=== PATIENT | female | born 1935 | race Caucasian/White ===

== ENCOUNTER 2019-12-21 13:28 | Outpatient (CLI) | payer MEDICARE, OTHER, SELFPAY ==
--- NOTE | 2019-12-21 13:47 | XR_ITS ---
WS: [id number] CHEST 2 VIEWS HISTORY: COUGH COMPARISON: None available. Lungs: Clear with no abnormality. No pleural effusion or pneumothorax. Cardiac size: Normal. Mediastinum/Aorta: Mild atherosclerosis of aorta and ectasia. Bones: S-shaped thoracolumbar scoliosis. Diffuse osteopenia. XR/XR chest 2V* [id number] IMPRESSION: Atherosclerosis aorta. No acute cardiopulmonary disease. No pneumonia.
== END 2019-12-21 13:29 | disposition home or self-care (01) ==
PROVIDERS: Family Provider Physician Assistant Medical; PCP Internal Medicine; Visit Provider Nurse Practitioner Family
DX: R05 Cough (principal); I70.0 Atherosclerosis of aorta
CPT/HCPCS: 71046

== ENCOUNTER 2023-05-22 21:55 | Emergency (ER) | payer MEDICARE, OTHER, SELFPAY ==
[2023-05-22 21:57] VITALS: BP 198/89; PULSE 84; RESP 18; TEMP 36.6; O2SAT 97; BMI 25.7
[2023-05-22 22:14] VITALS: BP 198/89; PULSE 74; RESP 16; O2SAT 97
--- NOTE | 2023-05-22 22:21 | XRR_ITS ---
PROCEDURE INFORMATION: Exam: XR Chest Exam date and time: 05/22/2023 10:26 PM Age: 87 years old Clinical indication: Other: Weakness h/a TECHNIQUE: Imaging protocol: Radiologic exam of the chest. Views: 1 view. COMPARISON: CR XR chest 2V* [id number] 12/21/2019 1:53 PM FINDINGS: Lungs: Unremarkable. No consolidation. Pleural spaces: Unremarkable. No pleural effusion. No pneumothorax. Heart/Mediastinum: Unremarkable. No cardiomegaly. Bones/joints: Dextroscoliosis. XR/XR chest 1V portable [id number] IMPRESSION: No acute findings.
--- NOTE | 2023-05-22 22:21 | CTR_ITS ---
PROCEDURE INFORMATION: Exam: CT Head Without Contrast Exam date and time: 05/22/2023 11:00 PM Age: 87 years old Clinical indication: Pain; Headache not specified; Additional info: [place] TECHNIQUE: Imaging protocol: Computed tomography of the head without contrast. Radiation optimization: All CT scans at this facility use at least one of these dose optimization techniques: automated exposure control; mA and/or kV adjustment per patient size (includes targeted exams where dose is matched to clinical indication); or iterative reconstruction. REPORTING DATA: Count of CT and Cardiac NM exams in prior 12 months: This patient has received 0 known CTs and 0 known cardiac nuclear medicine studies in the 12 months prior to the current study. COMPARISON: No relevant prior studies available. RADIATION DOSE METRICS: Total DLP (mGy-cm): 1204.95 FINDINGS: Brain: Severe calcified intracranial atherosclerotic vessel disease. Ludin cisterna magna which is a normal variant. Mild to moderate cerebral atrophy and ischemic leukoencephalopathy. Cerebral ventricles: No ventriculomegaly. Paranasal sinuses: Visualized sinuses are unremarkable. No fluid levels. Mastoid air cells: Visualized mastoid air cells are well aerated. Bones/joints: Unremarkable. No acute fracture. Soft tissues: Unremarkable. CT/CT head wo con* [id number] IMPRESSION: No acute intracranial findings.
[2023-05-22 22:27] LABS: Basophils % 0.3 %; Eosinophils % 0.1 %; Hematocrit 43.1 % (37.0-47.0); Hemoglobin 15.8 g/dL (11.5-15.3); Lymphocytes # 0.7 10^3/uL (0.8-4.8); Lymphocytes % 6.3 %; Mean Corpuscular HGB Conc 36.7 g/dL (30.0-36.0); Mean Corpuscular Hemoglobin 30.8 pg (28.0-34.0); Mean Platelet Volume 10.5 fL (7.4-10.4); Monocytes # 0.3 10^3/uL (0.2-0.9); Monocytes % 2.9 %; Neutrophils % 89.5 %; Nucleated Red Blood Cells % 0 %; Platelet Count 293 10^3/cmm (130-400); Red Blood Count 5.13 10^6/uL (4.1-5.3); Red Cell Distribution Width 13.2 % (12.1-15.1); White Blood Count 11.7 10^3/uL (4.0-10.0)
[2023-05-22] MEDS: acetaminophen 325 mg Tablet 650 MG PO (22:27)
[2023-05-22] MEDS: labetalol 5 mg/mL SDV 20mL 10 MG IVP (22:29)
--- NOTE | 2023-05-22 22:32 | ECG_ITS ---
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 Measurements Intervals [place] Rate: 73 P: 19 AK: 160 QRS: -30 QRSD: 106 T: 11 QT: 412 QTc: 456 Interpretive Statements SINUS RHYTHM WITH OCCASIONAL SUPRAVENTRICULAR PREMATURE COMPLEXES POSSIBLE LEFT ATRIAL ENLARGEMENT [-0.1mV P-WAVE IN V1/V2] POSSIBLE LEFT VENTRICULAR HYPERTROPHY [VOLTAGE CRITERIA PLUS LAE OR QRS WIDENING] POSSIBLE ANTERIOR MYOCARDIAL INFARCTION , OF INDETERMINATE AGE [30 ms Q WAVE IN V3/V4, OR R < 0.2 mV IN V4] No previous ECG available for comparison Electronically Signed On 05-23-2023 8:09:43 CDT by Vannesa Lay M.D. [id number]
--- NOTE | 2023-05-22 22:34 | ED_ITS ---
HPI - Headache General: Chief Complaint: Headache Stated Complaint: HEADACHE Time Seen by Provider: 05/22/23 21:56 Source: patient Mode of arrival: ambulatory Limitations: no limitations History of Present Illness: 87-year-old female states she has had a headache throughout the day she states that started this morning and seemed to worsen and then improved. She did take a Tylenol states is currently a 5 out of 10 states it was a frontal headache she has been having some nasal congestion she feels like as well. She had some slight weakness. She denies any fever denies any neck pain denies any vomiting or diarrhea. Associated symptoms: Reports malaise; Deny chest pain, fever(s), nausea, rash or vomiting Review of Systems Const: Reports: fatigue and malaise; Denies: fever(s), chills, body aches or change in appetite Eyes: Denies: blurry vision or eye discomfort ENMT: Reports: nasal congestion; Denies: throat pain or dental pain Card: Denies: chest pain Resp: Denies: dyspnea GI: Denies: abdominal pain, nausea, vomiting or diarrhea : Denies: dysuria Musc: Denies: neck pain or back pain Skin/Breast: Denies: rash Neuro: Reports: headache(s) Physical Exam Const: COMMON NORMALS: no acute distress, patient oriented x3 and healthy appearing HENMT: COMMON NORMALS: normocephalic and atraumatic HEAD & SCALP: normocephalic and atraumatic Eye: COMMON NORMALS: Equal, round and reactive pupils present and EOMs intact bilaterally PUPIL: Yes Equal, round and reactive pupils present Neck/C-Spine: COMMON NORMALS: full ROM and supple Chest: COMMONS NORMALS: normal inspection of the chest and normal palpation of entire chest wall Resp: COMMON NORMALS: normal respiratory effort, No retractions, No use of accessory muscles and clear to auscultation bilaterally AUSCULTATION: clear to auscultation bilaterally Cardio: COMMON NORMALS: regular rate, regular rhythm and No murmurs present (Cardio) RATE: regular rate RHYTHM: regular rhythm GI: COMMON NORMALS: Normal to inspection, nondistended, normoactive bowel sounds present, Soft to palpation, non-tender and no masses PALPATION: Yes Soft to palpation Extremity: COMMON NORMALS: normal to inspection and full ROM Neuro: COMMON NORMALS: patient oriented x3, moves all extremities and no focal motor deficits Psych: COMMON NORMALS: mental status grossly normal, Normal thought process present and cooperative THOUGHT PROCESS: Normal thought process present Skin: COMMON NORMALS: no rashes or lesions noted and no wounds GENERAL SKIN EXAM: no rashes or lesions noted Course Vital Signs: Vital signs: Vital Signs Temperature 97.9 F 05/22/23 21:57 Pulse Rate 69 05/22/23 23:29 Respiratory Rate 16 05/22/23 23:29 Blood Pressure 149/66 05/23/23 00:00 Pulse Oximetry 96 05/22/23 23:29 Oxygen Delivery Me thod Room Air 05/22/23 21:57 MDM - Headache Medical Decision Making Patient presents with a headache that is likely a tension headache she has no signs of subarachnoid hemorrhage or meningitis blood work here is normal patient is stable for discharge she is to follow-up with her PCP and return if worsening. Medical Records I reviewed the patient's medical records. Lab Data I reviewed the patient's lab results. 05/22/23 22:00 05/22/23 22:00 Radiology Impressions Chest X-Ray 05/22/23 22:21 IMPRESSION: No acute findings. Head CT 05/22/23 22:21 IMPRESSION: No acute intracranial findings. Laboratory Results WBC 11.7 10^3/uL (4.0-10.0) H 05/22/23 22:00 RBC 5.13 10^6/uL (4.1-5.3) 05/22/23 22:00 Hgb 15.8 g/dL (11.5-15.3) H 05/22/23 22:00 Hct 43.1 % (37.0-47.0) 05/22/23 22:00 MCV 84.0 fl (81-99) 05/22/23 22:00 MCH 30.8 pg (28.0-34.0) 05/22/23 22:00 MCHC 36.7 g/dL (30.0-36.0) H 05/22/23 22:00 RDW 13.2 % (12.1-15.1) 05/22/23 22:00 Plt Count 293 10^3/cmm (130-400) 05/22/23 22:00 MPV 10.5 fL (7.4-10.4) H 05/22/23 22:00 Neut % (Auto) 89.5 % 05/22/23 22:00 Lymph % (Auto) 6.3 % 05/22/23 22:00 [place] % (Auto) 2.9 % 05/22/23 22:00 Eos % (Auto) 0.1 % 05/22/23 22:00 Baso % (Auto) 0.3 % 05/22/23 22:00 Neut # (Auto) 10.50 10^3/uL (1.8-7.7) H 05/22/23 22:00 Lymph # (Auto) 0.7 10^3/uL (0.8-4.8) L 05/22/23 22:00 [place] # (Auto) 0.3 10^3/uL (0.2-0.9) 05/22/23 22:00 Eos # (Auto) 0.0 10^3/uL (0.0-0.8) 05/22/23 22:00 Baso # (Auto) 0.0 10^3/uL (0.0-0.1) 05/22/23 22:00 Nucleated RBC % (auto) 0 % 05/22/23 22:00 Nucleated RBCs # 0.0 /100WBC 05/22/23 22:00 Sodium 128 mmol/L (136-145) L 05/22/23 22:00 Potassium 3.3 mmol/L (3.5-5.1) L 05/22/23 22:00 Chloride 90 mmol/L (98-107) L 05/22/23 22:00 Carbon Dioxide 23 mmol/L (22-29) 05/22/23 22:00 Anion Gap 18.3 (5-19) 05/22/23 22:00 BUN 14 mg/dL (8-23) 05/22/23 22:00 Creatinine 0.4 mg/dL (0.5-0.9) L 05/22/23 22:00 GFR Calculation Not Reportable 05/22/23 22:00 Glucose 138 mg/dL (65-115) H 05/22/23 22:00 Calculated Osmolality 269 mOsm/kg (285-295) L 05/22/23 22:00 Calcium 9.4 mg/dL (8.5-10.5) 05/22/23 22:00 Total Bilirubin 1.7 mg/dL (0.15-1.2) H 05/22/23 22:00 AST 15 U/L (0-32) 05/22/23 22:00 ALT 10 U/L (0-33) 05/22/23 22:00 Alkaline Phosphatase 98 U/L (35-105) 05/22/23 22:00 Total Protein 7.1 g/dL (6.6-8.7) 05/22/23 22:00 Albumin 4.2 g/dL (3.5-5.2) 05/22/23 22:00 Globulin 2.9 g/dL (1.3-4.6) 05/22/23 22:00 Urine Color Yellow (Yellow) 05/22/23 23:00 Urine Appearance Clear (CLEAR) 05/22/23 23:00 Urine pH 7 (5-7) 05/22/23 23:00 Ur Specific [place] 1.010 (1.005-1.030) 05/22/23 23:00 Urine Protein 1+ (Negative) H 05/22/23 23:00 Urine Glucose (UA) Norm (Normal) 05/22/23 23:00 Urine Ketones 2+ (Negative) H 05/22/23 23:00 Urine Blood Neg (Negative) 05/22/23 23:00 Urine Nitrate Negative (Negative) 05/22/23 23:00 Urine Bilirubin Neg (Negative) 05/22/23 23:00 Urine Urobilinogen Norm mg/dL (Negative) 05/22/23 23:00 Ur Leukocyte Esterase 2+ (Negative) H 05/22/23 23:00 Urine RBC 0-4 /hpf (0-2) H 05/22/23 23:00 Urine WBC 15-25 /hpf (0-5) H 05/22/23 23:00 Ur Squamous Epith Cells 10-15 /hpf (0-5) H 05/22/23 23:00 Amorphous Sediment Not Reportable 05/22/23 23:00 Urine Bacteria Trace /hpf (NONE) 05/22/23 23:00 SARS-CoV-2 Ag (Rapid) negative (Negative) 05/22/23 23:00 EKG Data EKG 1: I personally reviewed and interpreted this EKG as follows: EKG interpretation date: 05/22/23 EKG interpretation time: 22:32 Interpretation: nsr hr [address] or t wave abnormalities qrs 106 qtc 438 Discharge Plan Discharge Patient Disposition: Home Clinical Impression: Headache Condition: Stable Discharge Orders: Discharge ED (Routine); Ordered 05/23/23 Ordered By: Abelardo Reyez Referrals: Christiana Pablo MD [Primary Care Provider] - 1-3 days Discharge Diet: Advance as tolerated Discharge Activity: Resume usual activity Patient Instructions: General Headache (ED) Coding Level of Care Code ED Preventive Maintenance Coordinator for Karelg Marbella
[2023-05-22 22:38] LABS: Alanine Aminotransferase 10 U/L (0-33); Albumin Level 4.2 g/dL (3.5-5.2); Alkaline Phosphatase 98 U/L (35-105); Anion Gap 18.3 (5-19); Aspartate Amino Transferase 15 U/L (0-32); Blood Urea Nitrogen 14 mg/dL (8-23); Calcium 9.4 mg/dL (8.5-10.5); Carbon Dioxide 23 mmol/L (22-29); Chloride 90 mmol/L (98-107); Globulin 2.9 g/dL (1.3-4.6); Glucose 138 mg/dL (65-115); Osmolality Calculated 269 mOsm/kg (285-295); Potassium 3.3 mmol/L (3.5-5.1); Sodium 128 mmol/L (136-145); Total Bilirubin 1.7 mg/dL (0.15-1.2); Total Protein 7.1 g/dL (6.6-8.7)
[2023-05-22 23:29] VITALS: BP 169/88; PULSE 69; RESP 16; O2SAT 96
[2023-05-22 23:44] LABS: SARS Covid-2 Antigen negative (Negative)
[2023-05-22] MEDS: hyDRALAzine 20 mg/mL INJ 1 mL 10 MG IVP (23:48)
[2023-05-22] MEDS: ketorolac 30 mg/mL INJ 15 MG IVP (23:48)
[2023-05-23] VITALS: BP 149/66
[2023-05-23] LABS: Add Urine Microscopic? YES; Bilirubin Urine Neg (Negative); Blood Urine Neg (Negative); Glucose Urine UA Norm (Normal); Ketones Urine 2+ (Negative); Leukocyte Esterase Urine 2+ (Negative); Nitrate Urine Negative (Negative); Protein Urine 1+ (Negative); Urine Appearance Clear (CLEAR); Urine Color Yellow (Yellow); Urobilinogen Urine Norm (Negative); pH Urine 7 (5-7)
[2023-05-23 00:01] LABS: RBC Urine 0-4 /hpf (0-2); WBC Urine 15-25 /hpf (0-5)
[2023-05-23 00:02] LABS: Add Urine Culture? No; Bacteria Urine TRACE /hpf
[2023-05-23 00:24] VITALS: BP 149/66; PULSE 69; RESP 16; TEMP 36.6; O2SAT 96
== END 2023-05-23 00:24 | disposition home or self-care (01) ==
PROVIDERS: Emergency Provider Emergency Medicine; PCP Internal Medicine
DX: R51.9 Headache, unspecified (principal)
CPT/HCPCS: 70450; 71045; 80053; 81001; 81003; 85025; 87426; 93005; 96374; 96375; 99285; J0360; J1885; J3490

== ENCOUNTER 2023-05-28 12:33 | Outpatient (CLI) | payer MEDICARE, OTHER, SELFPAY ==
--- NOTE | 2023-05-28 12:44 | XRR_ITS ---
PROCEDURE INFORMATION: Exam: XR Right Hand Exam date and time: 05/28/2023 12:53 PM Age: 87 years old Clinical indication: Injury or trauma; Fall; Blunt trauma (contusions or hematomas); Wrist and hand; Right; Injury date: 05/24/23; Additional info: Pain in wrist/pain in R hand TECHNIQUE: Imaging protocol: Radiologic exam of the right hand. Views: 3 or more views. COMPARISON: No relevant prior studies available. FINDINGS: Bones/joints: Diffuse bony demineralization. No acute fracture or dislocation. Moderate degenerative joint space narrowing, osteophytosis, subchondral sclerosis and cystic change at the 1st CMC joint. Milder degenerative changes scattered throughout the IP joints greatest at the long finger DIP joint of moderate degree. TFCC chondrocalcinosis. Soft tissues: Unremarkable. XR/XR hand RT min 3V* [id number] IMPRESSION: 1. Osteopenia without acute fracture or dislocation. 2. 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 3. TFCC chondrocalcinosis.
--- NOTE | 2023-05-28 12:44 | XRR_ITS ---
PROCEDURE INFORMATION: Exam: XR Right Wrist Exam date and time: 05/28/2023 12:53 PM Age: 87 years old Clinical indication: Injury or trauma; Fall; Blunt trauma (contusions or hematomas); Wrist and hand; Right; Injury date: Friday; Additional info: Pain in R wrist TECHNIQUE: Imaging protocol: Radiologic exam of the right wrist. Views: 3 or more views. COMPARISON: No relevant prior studies available. FINDINGS: Bones/joints: Diffuse bony demineralization. No acute fracture. Moderate degenerative joint space narrowing, osteophytosis, subchondral sclerosis and cystic change at the 1st CMC joint. Remaining joints are maintained. TFCC chondrocalcinosis. Soft tissues: Mild soft tissue swelling. XR/XR wrist RT min 3V* [id number] IMPRESSION: 1. Osteopenia without acute fracture or dislocation. 2. 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 3. TFCC chondrocalcinosis is nonspecific but commonly seen in the setting of calcium pyrophosphate deposition disease.
== END 2023-05-28 12:34 | disposition home or self-care (01) ==
PROVIDERS: PCP Internal Medicine; Visit Provider Nurse Practitioner Family
DX: M79.641 Pain in right hand (principal); M25.531 Pain in right wrist
CPT/HCPCS: 73110; 73130

== ENCOUNTER 2025-03-11 14:06 | Outpatient (CLI) | payer MEDICARE, OTHER, SELFPAY ==
--- NOTE | 2025-03-11 14:09 | XR_ITS ---
WS: [id number] SCREENING DEXA SCAN [place] CLINICAL INFORMATION: ASYMPTOMATIC POSTMENOPAUSAL STATUS COMPARISON: None. FINDINGS: The L1-L4 bone mineral density measures 1.050 g/cm2. This corresponds to a T score score of -1.1 and Z score of 0.7. Right femoral neck bone mineral density measures 0.65. This corresponds to a T score -2.8 of and Z score of -0.5. LEFT forearm bone mineral density measures 0.58. This corresponds to a T score of -3.4 and Z score of 0.2. XR/XR DEXA axial skeleton* [id number] IMPRESSION: Osteopenia lumbar spine. Osteoporosis RIGHT femoral neck. Osteoporosis LEFT for earm Patient's FRAX calculated 10 year probability for major osteoporotic fracture i s 21.2% and osteoporotic hip fracture is 7.0%.
== END 2025-03-11 14:07 | disposition home or self-care (01) ==
PROVIDERS: PCP Internal Medicine; Visit Provider Internal Medicine
DX: Z78.0 Asymptomatic menopausal state (principal); M85.88 Other specified disorders of bone density and structure, other site; M81.0 Age-related osteoporosis without current pathological fracture
CPT/HCPCS: 77080

== ENCOUNTER 2025-04-13 10:34 | Outpatient (CLI) | payer MEDICARE, OTHER, SELFPAY ==
--- NOTE | 2025-04-13 10:46 | XR_ITS ---
WS: [id number] XR hip LT 2-3V wo/w pel* [id number] REASON FOR EXAM: HX OF TRAUMATIC HIP FX FINDINGS: Short intramedullary inna and large femoral neck nail fixation of previous intertrochanteric fracture. Surgical appliances are intact and in proper position and alignment. Soft tissue ossification 3 x 7 cm adjacent to the region of the lesser trochanter. Fracture line yet identifiable but there is evidence of healing. XR/XR hip LT 2-3V wo/w pel* [id number] IMPRESSION: Intertrochanteric fracture with internal fixation as above. No acute abnormalit y.
== END 2025-04-13 10:35 | disposition home or self-care (01) ==
LOC: RAD 10:40
PROVIDERS: PCP Internal Medicine; Visit Provider Internal Medicine
DX: Z87.81 Personal history of (healed) traumatic fracture (principal); Z98.890 Other specified postprocedural states; M79.89 Other specified soft tissue disorders
CPT/HCPCS: 73502